=== PATIENT | female | born 1990 | race Caucasian/White ===

== ENCOUNTER 2017-02-08 13:24 | Emergency (ER) | payer OTHER ==
--- NOTE | ~2017-02-08 | CR127 ---
[facility] A Service of [facility] & [facility] RADIOLOGY TEXT RESULTS PATIENT: VERENICE ARRIAGA LOCATION: SED : 88 UNIT #: [id number] AGE: [address]: Radha Clarke MD SEX: F ORDER DR: [id number] [id number] MR#: [id number] Acc #: [id number] NAME: VERENICE ARRIAGA. : 1990 SEX: F STUDY DATE/TIME: 02/08/2017 14:13 UNIT: SED ROOM: STUDY DESCRIPTION: CR Foot Complete Min 3 View Rt Attending Physician: Radha Clarke M.D. Ordering Physician: Radha Clarke M.D. Primary Care Physician: Elias Hendricks M.D. MEDICAL IMAGING REPORT This report is preliminary unless electronic signature is present. EXAM Right foot 3 views, 02/08/2017 HISTORY Metatarsal pain beginning last night, injured getting foot on concrete block. FINDINGS The tarsal, metatarsal, and phalangeal elements are all anatomically normal in position and alignment. There are no articular defects. No fractures or radiopaque foreign bodies in the soft tissues are apparent. IMPRESSION Normal foot. Dictated by... Malick Valentino M.D. THIS IS AN ELECTRONICALLY VERIFIED REPORT Malick Valentino M.D. at 02/09/2017 2:09 PM CAMPOS/tita TD: 02/09/2017 02:06 JOB #: [id number] MEDICAL IMAGING REPORT Page 1 of 1
[~2017-02-08 13:24] MED LIST: ALBUTEROL17 GM INH; BACTROBAN15 GM TOP; CEPHALEXIN500 M1 PO; CLEOCIN150 MG PO; ELIMITE60 GM TOP; FLEXERIL10 MG PO; GUAIFENESIN LA600 M1 PO; IBUPROFEN800 MG PO; NAPROSYN500 MG PO; NAPROXEN PO; NO MEDICATIONS; ONDANSETRON HCL4 M1 PO; PHENERGAN PO; PHENERGAN25 M1 PO; PHENERGAN25 MG PO; PREDNISONE PO; PRENA1 CHEW TABL1 MG; PRENATAL1 TA1 PO; PREVACID PO; PROZAC; TRILEPTAL PO; ULTRAM PO; VICODIN 5/500 T1 TAB PO; VOLTAREN75 MG PO; ZITHROMAX1 G/PKT PO; ZOFRAN ODT4 MG PO
== END 2017-02-08 15:05 | disposition home or self-care (01) ==
LOC: SED 13:24
DX: S90.31XA Contusion of right foot, initial encounter (principal); F17.210 Nicotine dependence, cigarettes, uncomplicated; Z88.0 Allergy status to penicillin; Z91.040 Latex allergy status; W22.01XA Walked into wall, initial encounter; Y92.009 Unspecified place in unspecified non-institutional (private) residence as the place of occurrence of the external cause
CPT/HCPCS: 29540; 73630; 99283